=== PATIENT | male | born 1965 | race American Indian/Alaskan Native ===

== ENCOUNTER 2019-09-24 14:54 | Emergency (ER) | payer SELFPAY ==
--- NOTE | 2019-09-24 16:06 | Emergency Department Report ---
Chief Complaint: Arrhythmia/Palpitations Stated Complaint: CHEST PAIN/FEET/TOES NUMB Time Seen by Provider: 09/24/19 16:03 - HPI History of Present Illness: Mr. Everett is a 54 yo male with hx of DM and neuropathy presents with need for insulin and heart fluttering. MSE screening note: Focused history and physical exam performed. Due to findings the following was ordered: ED Disposition for MSE Clinical Impression: Diabetes mellitus Disposition: MED SCREENING EXAM-LEFT Is pt being admited?: No Does the pt Need Aspirin: No Condition: Stable Referrals: KIKE BROWN MD [Staff Physician] - 3-5 Days
[2019-09-24 16:07] VITALS: BP 148/84
== END 2019-09-24 16:10 | disposition left against medical advice (07) ==
LOC: ED 14:54
DX: E11.9 Type 2 diabetes mellitus without complications (principal)
CPT/HCPCS: 82962; 93005; 93010; 99282